=== PATIENT | male | born 1960 | race Caucasian/White ===

== ENCOUNTER 2018-02-09 02:48 | Outpatient (RCR) | payer OTHER, SELFPAY | END 2018-03-11 | LOC: CR 02:48 | PROVIDERS: Visit Provider Family Medicine | DX: I25.2 Old myocardial infarction (principal); Z51.89 Encounter for other specified aftercare | CPT/HCPCS: S9472 ==

== ENCOUNTER 2018-04-08 13:19 | Outpatient (RCR) | payer OTHER, SELFPAY | END 2018-04-10 23:59 | disposition home or self-care (01) | LOC: CR 13:19 | PROVIDERS: Visit Provider Family Medicine | DX: Z95.5 Presence of coronary angioplasty implant and graft (principal); I25.2 Old myocardial infarction; Z86.74 Personal history of sudden cardiac arrest; Z51.89 Encounter for other specified aftercare | CPT/HCPCS: S9472 ==

== ENCOUNTER 2018-05-02 11:48 | Outpatient (RCR) | payer OTHER, SELFPAY | END 2018-05-11 23:59 | disposition home or self-care (01) | LOC: CR 11:48 | PROVIDERS: Visit Provider Family Medicine | DX: Z95.5 Presence of coronary angioplasty implant and graft (principal); I25.2 Old myocardial infarction; Z86.74 Personal history of sudden cardiac arrest; Z51.89 Encounter for other specified aftercare | CPT/HCPCS: S9472 ==

== ENCOUNTER 2019-10-13 00:58 | Outpatient (CLI) | payer OTHER, SELFPAY ==
[2019-10-13 10:28] LABS: HCT 35.6 % (40.0-50.0); HGB 11.8 g/dL (13.5-17.5); Mean Corp. HGB Concentration 33.1 g/dL (32.0-36.0); Mean Corpuscular Volume 90.6 fL (80-95); Mean Platelet Volume 8.1 fL (8.0-11.0); Platelet Count 730 x1000/uL (130-400); RBC 3.93 m/cumm (4.50-6.00); RBC Distribution Width 12.1 % (11.8-14.1)
[2019-10-13 11:12] LABS: White Blood Cell Count 35.15 k/cumm (4.4-10.8)
[2019-10-13 11:29] LABS: BUN 10 mg/dL (7-18); CREATININE 0.85 mg/dL (0.70-1.30); Calcium 9.3 mg/dL (8.5-10.1); Chloride 93 mmol/L (98-107); Glucose 140 mg/dL (74-106); Potassium 3.8 mmol/L (3.5-5.1); Sodium 128 mmol/L (136-145)
== END 2019-10-13 01:18 ==
PROVIDERS: PCP Internal Medicine; Visit Provider Internal Medicine
DX: J18.8 Other pneumonia, unspecified organism (principal); I25.10 Atherosclerotic heart disease of native coronary artery without angina pectoris
CPT/HCPCS: 36415; 80048; 85027